=== PATIENT | female | born 1955 | race African-American/Black ===

== ENCOUNTER 2017-12-12 07:14 | Emergency (ER) | payer OTHER ==
[~2017-12-12] VITALS: Ht 167.6 cm; Wt 98.3 kg
[~2017-12-12 07:14] MED LIST: AMLO2.5T2 PO; ASPI-1071 PO; CARV3.1289 PO; PANT-47 PO; SIMV10TA6 PO
[2017-12-12 07:23] VITALS: BP 157/85
== END 2017-12-12 08:59 | disposition home or self-care (01) ==
LOC: ER 07:14
DX: M76.61 Achilles tendinitis, right leg (principal); I10 Essential (primary) hypertension; M19.90 Unspecified osteoarthritis, unspecified site; Z90.710 Acquired absence of both cervix and uterus; Z90.89 Acquired absence of other organs; Z88.5 Allergy status to narcotic agent; Z79.82 Long term (current) use of aspirin; Z79.899 Other long term (current) drug therapy; Z87.891 Personal history of nicotine dependence
CPT/HCPCS: 99282; A6449; L3260

== ENCOUNTER 2025-03-07 08:05 | Inpatient (IN) | payer BC, MEDICARE ==
[~2025-03-07] VITALS: Ht 167.6 cm; Wt 91.0 kg
[2025-03-07] VITALS (12 sets, daily range): BP systolic 125–162; BP diastolic 60–85; PULSE 71–115; RESP 16–21; TEMP 97.1–98.1; O2SAT 93–100
[~2025-03-07 08:05] MED LIST changes: -SIMV10TA6 PO; +SIMV10TA98 PO
--- NOTE | 2025-03-07 08:14 | ELECTROCARDIOGRAPH REPORT ---
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
--- NOTE | 2025-03-07 08:22 | Physician Documentation ---
History of Present Illness General Chief Complaint: Chest Pain Stated Complaint: CP Time Seen by MD: 08:22 OK to notify your PCP?: No Primary Medical Doctor: Pulse Exam Limitations: no limitations History of Present Illness Initial Comments The patient is a 69-year-old female presents to the emergency room with chest discomfort this has been going on for about the last two weeks. Patient states she gets short of breath and she has episodes of worsening chest pain over last two weeks. She states that she has had her thyroid removed a year ago and she is not on any thyroid medication. The patient states the pain is always there but sometimes it worsens and sometimes it improves. Patient denies any history of blood clots. Patient denies any fevers chills nausea or vomiting. Patient denies any history of cardiac problems other than some high blood pressure. Patient states her last cardiac workup was probably five years ago. Patient states she has diaphoresis during these episodes. Medication Reconciliation Allergies: Coded Allergies: codeine (Unverified Allergy, Unknown, 12/12/17) Scheduled Atorvastatin Calcium* (Lipitor*), 1 TAB PO DAILY, (Reported) Cyclobenzaprine* (Cyclobenzaprine*), 0.5 TAB PO Q12H, (Reported) Hydrochlorothiazide (Hydrochlorothiazide), 1 TAB PO DAILY, (Reported) Metoprolol Tartrate (Lopressor tablet), 1 TAB PO Q12H, (Reported) Trazodone HCl (Trazodone HCl), 1 TAB PO HS, (Reported) Discontinued Medications Amlodipine* (Norvasc*), 1 TABLET PO HS Discontinued Reason: patient no longer taking Aspirin* (Ecotrin*), 81 MG PO DAILY Discontinued Reason: patient no longer taking Carvedilol (Carvedilol), 3.125 MG PO BID Discontinued Reason: patient no longer taking Pantoprazole Sodium (PROTONIX tablet), 40 MG PO BKF Discontinued Reason: patient no longer taking Simvastatin (Simvastatin), 1 TABLET PO HS Discontinued Reason: patient no longer taking Past Medical History Past Medical History: Hypertension, Arthritis, Depression Past Surgical History: hysterectomy, tonsillectomy Smoking: Non-Smoker Alcohol Use: Rarely Drug Use: none Occupation: employed Review of Systems All Other Systems at this time: Reviewed and Negative Physical Exam Physical Exam Vital Signs: RN Vital Signs have been reviewed: Yes, Temperature: 97.0, Source: Temporal, Heart Rate: 117, Respiratory Rate: 16, BP: 193/112, Pulse Oximetry: 98, Weight: 91.000 Physical Exam VITALS: Reviewed and as above. GENERAL: Alert, no apparent distress. HEENT: Normocephalic, atraumatic, PERRL, EOMI, dry mucosa, no erythema RESPIRATORY: Lungs clear, normal breath sounds, no respiratory distress. CHEST: No accessory muscle use, no retractions CV: Tachycardia rate, rhythm, no edema, no murmur, No: JVD GI: Soft, non-tender, bowels sounds present, no rebound, guarding, or rigidity BACK: No CVA tenderness, or swelling MUSCULOSKELETAL: No deformities, no edema SKIN: Warm and dry, no rash NEURO: Oriented x4, No motor or sensory deficit PSYCH: Normal mood and affect, no agitation Progress Progress Note 0928: Hospitalist paged. 1010: Case discussed with internal medicine resident, who agrees to evaluate for admission. Results/Orders Reviewed/noted all lab results: Yes Results/Orders Orders - WILL SINGH MD Chest,Single View (03/07/25 08:16) Monitor (03/07/25 08:09) Saline Lock (03/07/25 08:09) Oxygen (03/07/25 08:09) Potassium Cl Sr Tablet (K-Dur Tablet) (03/07/25 09:00) Potassium Cl Sr Tablet (K-Dur Tablet) (03/07/25 09:00) Magnesium Cl Er Tablet (Slow-Mag Tablet) (03/07/25 09:00) Magnesium Sulf-Water 2g/50ml (Magnesium (03/07/25 09:00) Magnesium Sulf-Water 4g/100ml (Magnesium (03/07/25 09:00) Potassium Cl 40meq/1/2ns 520ml ([place] (03/07/25 09:00) K And/Or Mag Replacement (K And/Or Mag R (03/07/25 20:00) Page Hospitalist (03/07/25 09:28) Fill Out Med Reconciliation (03/07/25 09:28) Completed Orders - WILL SINGH MD Chest,Single View (03/07/25 08:16) Cbc/Diff (03/07/25 08:09) BMP (03/07/25 08:09) PBNP (03/07/25 08:09) Electrocardiogram (03/07/25 08:09) Hs Troponin I W Calculations (03/07/25 08:09) Hs Troponin I W Calculations (03/07/25 10:09) Hs Troponin I W Calculations (03/07/25 11:09) MG (03/07/25 08:17) TSH (03/07/25 08:17) D-Dimer (03/07/25 08:49) Lipid Panel (03/07/25 08:17) Vital Signs 03/07/25 03/07/25 03/07/25 03/07/25 08:12 08:27 08:27 09:35 Temp 97.0 97.0 Pulse 117 96 96 Resp 16 8 16 B/P (MAP) 193/112 160/89 (112) 147/80 (102) Pulse Ox 98 99 100 O2 Flow Rate 0 0 Laboratory Tests Test 03/07/25 08:17 White Blood Count 8.7 Red Blood Count 5.03 Hemoglobin 14.9 Hematocrit 43.8 Mean Corpuscular Volume 87.2 Mean Corpuscular Hemoglobin 29.6 Mean Corpuscular Hemoglobin Concent 33.9 Red Cell Distribution Width 14.2 Platelet Count 225 Mean Platelet Volume 9.8 Neutrophils (%) (Auto) 67.2 Lymphocytes (%) (Auto) 25.8 Monocytes (%) (Auto) 5.6 Eosinophils (%) (Auto) 0.6 Basophils (%) (Auto) 0.8 Neutrophils # (Auto) 5.8 Lymphocytes # (Auto) 2.2 Monocytes # (Auto) 0.5 Eosinophils # (Auto) 0.0 Basophils # (Auto) 0.1 CBC Comment D-Dimer 0.33 D-Dimer Comment Sodium Level 136 Potassium Level 2.7 *L Chloride Level 96 L Carbon Dioxide Level 30.1 Anion Gap 10 Blood Urea Nitrogen 20 H Creatinine 1.09 H Estimated GFR/1.73 m2 61 BUN/Creatinine Ratio 18.3 Glucose Level 136 H Calcium Level 9.3 Magnesium Level 2.2 Troponin I High Sensitivity 8 Pro-B-Type Natriuretic Peptide 57 Albumin 3.9 Triglycerides Level 99 Cholesterol Level 199 LDL Cholesterol 80 HDL Cholesterol 91 H Cholesterol/HDL Ratio 2.2 Thyroid Stimulating Hormone (TSH) 1.98 Chemistry Comments EKG/XRAY/CT/US/VASC/MRI EKG : Additional Comment 0812: EKG interpreted by myself to show sinus tachycardia at a rate of 108bpm. Prolonged QTc at 565ms. Nonspecific ST changes. Chest X-Ray : Additional Comments Patient: CRISPIN BERG Medical Record: [id number] [facility] : 1955, Age: 69 Sex: Female Location: ER Patient Status: [facility] ER Service Date/Time: 03/07/25815 Ordering Physician: WILL SINGH MD Exam: CHEST,SINGLE VIEW CHEST RADIOGRAPH Indication: CP Technique: Single frontal view of the chest was obtained Comparison: None FINDINGS: Lines and Tubes: None Lungs: No focal consolidation. Pleura: No effusion. No pneumothorax. Cardiomediastinal contours: Unremarkable Bones: No acute osseous abnormality. IMPRESSION: No acute cardiopulmonary disease. Electronically Signed by:MARSHALL WEBB MD Date & Time: 03/07/25844 Dictated by: MARSHALL WEBB MD Dictation date and time: 03/07/25815 Primary Care Provider: NO PRIMARY CARE PROVIDER cc: WILL SINGH MD ~ Medical Decision Making Findings The patient is a 69-year-old female with chest discomfort in some tachycardia, the patient has normal-appearing troponins, the patient's EKG was nonischemic appearing. The patient has not recently been studied by Cardiology. The patient will be admitted for further evaluation of her chest pain. Patient's chest x-ray was interpreted by me as showing a normal cardiac silhouette normal mediastinum and normal appearing bony structures as well as normal-appearing lung field I interpreted the chest x-ray as a normal chest x-ray the EKG was interpreted by me the traffic monitor specialist was interpreted as a sinus tachycardia in the pulse oximetry was interpreted as a normal pulse ox the patient will be admitted prior hospitalizations have been reviewed. Departure Disposition: ADMITTED INPATIENT Admitted to Inpatient Unit: yes, to hospitalist Impression: Primary Impression: Chest pain Qualified Codes: R07.9 - Chest pain, unspecified Additional Impressions: Hypokalemia Tachycardia Condition: Fair Education Educated: Patient Educated regarding: diagnosis, treatment, need for follow up Signature Scribe Signature: Scribed for Will Singh MD by Radha Hernandez . 03/07/25 09:16 Attestation: The note accurately reflects work and decisions made by me.Will Singh MD 03/08/25 18:57 WILL SINGH MD Mar 07, 2025 08:22 RADHA HARPER Mar 07, 2025 09:17
[2025-03-07 08:32] LABS: MEAN PLATELET VOLUME 9.8 FL (7.4-10.4); RED CELL DISTRIBUTION WIDTH 14.2 % (11.5-14.5)
--- NOTE | 2025-03-07 08:48 | RADIOLOGY REPORT ---
CHEST RADIOGRAPH Indication: CP Technique: Single frontal view of the chest was obtained Comparison: None FINDINGS: Lines and Tubes: None Lungs: No focal consolidation. Pleura: No effusion. No pneumothorax. Cardiomediastinal contours: Unremarkable Bones: No acute osseous abnormality. IMPRESSION: No acute cardiopulmonary disease.
[2025-03-07 08:56] LABS: CREATININE 1.09 MG/DL (0.40-0.90); PRO BRAIN NATRIURETIC PEPTIDE 57 PG/ML (0-125); TOTAL CARBON DIOXIDE 30.1 MMOL/L (24-32); eCRCL 47 ML/MIN; eGFR 61 ML/MIN
[2025-03-07] MEDS ORDERED: magnesium Cl slow-release 64mg tablet PO PRN ×2 (09:00→12:50)
[2025-03-07] MEDS ORDERED: potassium Cl 40MEQ/1/2NS 520ml 520 ML IV PRN ×2 (09:00→12:50)
[2025-03-07] MEDS ORDERED: magnesium sulf-water 2g/50mL 50 ML IV PRN ×2 (09:00→12:50)
[2025-03-07] MEDS ORDERED: magnesium sulf-water 4G/100mL 100 ML IV PRN ×2 (09:00→12:50)
[2025-03-07] MEDS: potassium Cl 20 mEq SR tablet PO PRN (09:33)
[2025-03-07] MEDS ORDERED: LOP12.5T PO (10:32)
[2025-03-07] MEDS ORDERED: HYDR25TA5 PO (10:32)
[2025-03-07] MEDS ORDERED: ATOR20TA PO (10:32)
[2025-03-07] MEDS ORDERED: TRAZ-251 PO (10:32)
[2025-03-07] MEDS ORDERED: CYCL-1 PO (10:32)
[2025-03-07] MEDS: levoTHYROXINE 100mcg tablet PO SCH (10:52)
[2025-03-07] MEDS ORDERED: aminophylline 250mg/10ml inj. IV PRN (11:30)
[2025-03-07] MEDS ORDERED: metoprolol tartrate 1mg/ml inj IV PRN (11:30)
[2025-03-07] MEDS: PERFLUTREN PROTEIN-A MICROSPHR (Optison) 0.22 MG/ML 3ML VIAL IV ONE (12:23)
[2025-03-07] MEDS ORDERED: cloNIDine 0.1 MG/24 HOUR patch (7 day patch) TD PRN (12:45)
[2025-03-07] MEDS ORDERED: ondansetron/PF 4mg/2ml inj IV PRN (12:50)
[2025-03-07] MEDS ORDERED: potassium Cl 20 mEq SR tablet PO PRN ×2 (12:50)
[2025-03-07] MEDS ORDERED: magnesium hydroxide 30ml (MOM) UD suspension PO PRN (12:50)
[2025-03-07] MEDS ORDERED: mag hydrox/Alum hydrox/simeth 30ml oral suspension PO PRN (12:50)
[2025-03-07 13:05] LABS: CHOL/HDL RATIO 2.2 (0.00-4.99); LDL CHOLESTEROL 80 MG/DL (50-100)
[2025-03-07 14:19] LABS: APTT 28 SECONDS (22-32); INR 1.1 INR
[2025-03-07 14:24] LABS: CREATININE 0.85 MG/DL (0.40-0.90); PHOSPHORUS 3.2 MG/DL (2.3-4.5); TOTAL CARBON DIOXIDE 30.2 MMOL/L (24-32); eCRCL 60 ML/MIN; eGFR 81 ML/MIN
[2025-03-07] MEDS: regadenoson 0.4mg/5ml syringe IV PRN (14:50)
--- NOTE | 2025-03-07 15:56 | RADIOLOGY REPORT ---
HISTORY: chest pain TECHNIQUE: At peak stress, 35.6 mCi of sestamibi was administered intravenously. Soon thereafter, gated SPECT imaging of the heart was performed with the patient in the supine position. At rest, 9.5 mCi of sestamibi was administered intravenously. Soon thereafter, gated SPECT imaging of the heart was performed with the patient in the supine position. FINDINGS: The left ventricular myocardium demonstrates uniform radiotracer distribution, without perfusion defect. The left ventricular cavity is normal in size. Calculated LVEF is 85 %. No segmental wall motion abnormality. IMPRESSION: NORMAL MYOCARDIAL PERFUSION EXAM. LVEF 85 %.
[2025-03-07] MEDS: aspirin 81mg, enteric-coated 1 TAB TABLET.DR PO SCH (17:03)
[2025-03-07] MEDS: metoprolol succinate 25mg (24-HOUR) SR. Tablet PO SCH (17:04)
--- NOTE | 2025-03-07 18:00 | HISTORY AND PHYSICAL-Residence ---
History & Physical Providers to CC Resident Creating Document: HAO SMITH RES ~ History of Present Illness Primary Medical Doctor: Pulse Reason for Admit\Complaint: Chest pain History of Present Illness 69-year-old female with history of hypertension, arthritis, depression, GERD came to the ER with complaints of intermittent episodes of central chest pain since past 2 weeks associated with shortness of breath and diaphoresis. She states that she has been having chronic chest tightness intermittently, and it used to reduce with over the counter Zantac (ranitidine) but it has not been working since past 2 weeks. She reports that her pain radiates to the back and duration of these episodes varies from 30 min to 2 hours. She states that these episodes are unrelated to exertion, and that they worsen when she takes spicy foods. She claims that the pain was 8/10 when she came in and now it reduced to 5/10. She gets short of breath during these episodes and and she states that it is not related to position. She denies swelling of bilateral lower legs. She has had chronic cough with minimal, clear sputum sometimes. She reports having few gagging episodes and denies choking. She states that she gets frequent headaches due to stress. She states that she feels lightheaded sometimes but denies any falls. She also states that she sometimes feels her heart racing. She reports that she has been taking less p.o. intake for the past few days. She is not on blood thinners. Her director cardiovascular is Dr. Marie Ferrera. She denies fever, chills, burning micturition, frequency, urgency, abdominal pain, nausea, vomiting, constipation, diarrhea, hematemesis, melena, hematochezia, changes in weight. Allergies: Coded Allergies: codeine (Unverified Allergy, Unknown, 12/12/17) Home Medications Home Medications Active Reported Trazodone HCl 50 Mg Tablet 1 Tab PO HS 30 Days Hydrochlorothiazide 25 Mg Tab 1 Tab PO DAILY 30 Days Lipitor* (Atorvastatin Calcium) 20 Mg Tablet 1 Tab PO DAILY 30 Days Lopressor tablet (Metoprolol Tartrate) 25 Mg Tablet 1 Tab PO Q12H 30 Days Hold for SBP below 100mm Hg Hold for Heart Rate below 60. Cyclobenzaprine* (Cyclobenzaprine HCl) 10 Mg Tablet 0.5 Tab PO Q12H 10 Days Past Medical History Past Medical History Hypertension Arthritis Depression GERD Past Surgical History Surgical History Comment Total thyroidectomy Hysterectomy Tonsillectomy Bilateral Cataract removal Family History Family History: FHx: diabetes mellitus Past Social History Social History Comment She quit smoking 18 years back. She used to smoke 1 pack/day for around 30 years. She quit drinking alcohol 2 years back. 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 Smoking: Non-Smoker Alcohol Use: Rarely Drug Use: None Occupation: employed ROS All Other Systems: Reviewed and Negative ROS Constitutional: Reports lightheadedness, No fever, chills, weight gain or loss Eyes: No pain, erythema, discharge, blurring of vision ENT: No sore throat, epistaxis, tinnitus Cardiovascular: Reports chest pain, diaphoresis, No palpitations, syncope, lower extremity edema, paroxysmal nocturnal dyspnea Respiratory: Reports Shortness of breath and cough, No hemoptysis. Gastrointestinal:No Abdominal pain, vomiting,nausea,constipation,diarrhea. Normal appetite. No hematemesis or melena. Musculoskeletal: No Swelling, pain in bilateral lower legs. Integumentary: No change in skin, hair, nails. No swelling, bruising, abrasions Neurologic: Reports headaches and generalized weakness, No neck pain, numbness or tingling of the extremities, Psychiatric: No delusions, depression, loss of interest in normal activity or change in sleep pattern, hallucinations, suicidal ideations Endocrine: No fatigue, no weakness. polydipsia, polyuria, change in appetite, heat or cold intolerance, sweating, dry skin Hematological: No bleeding, petechiae, bruising Allergies: No asthma or urticaria Exam Vitals: Vital Signs Date Time Temp Pulse Resp B/P (MAP) Pulse Ox O2 Delivery O2 Flow Rate FiO2 03/07/25 14:57 83 16 132/62 98 Room Air 03/07/25 11:33 0 03/07/25 08:27 97.0 General: Awake , alert, and oriented x4, resting comfortably in the bed, in no acute distress HEENT: Atraumatic, normocephalic, EOMI, anicteric sclera ; pink conjunctiva Neck: Trachea midline. Supple, full range of motion, no JVD Cardiac: Regular rhythm, regular rate with no murmurs all over the precordium. Respiratory: No tenderness, Equal breath sounds bilaterally, no tachypnea, no wheezing ,rub or rales, Chest wall is symmetric and without deformity. Gastrointestinal: Abdomen symmetric, non-distended, soft, non-tender, normal bowel sounds x4 quadrant, normoactive, no hepatosplenomegaly Musculoskeletal: No pedal edema, no cyanosis Neurological: Speech is clear, alert, and oriented x 4. No motor or sensory deficit, deep tendon reflexes normal, cerebellar intact. Cranial nerves II-XII intact. Skin: Warm and dry Diagnostic Data Last Recorded Lab Results: 03/07/25 0817 03/07/25 1359 Diagnostic Data: Laboratory Tests Test 03/07/25 08:17 03/07/25 13:59 D-Dimer 0.33 MG/L FEU (0-0.50) D-Dimer Comment Prothrombin Time 11.0 SECONDS (9.0-12.0) INR International Normalized Ratio 1.1 INR Activated Partial Thromboplast Time 28 SECONDS (22-32) Coagulation Comments Additional Plan Chest pain, possibly due to GERD vs Unstable angina Troponin is normal EKG shows no ischemic changes or arrhythmias Chest x-ray shows no cardiopulmonary abnormality BNP is normal Echo shows LVEF of 65-70% with trace to mild mitral regurgitation, trace tricuspid and pulmonic regurgitation. Lipid panel normal Plan: Started aspirin, atorvastatin, metoprolol succinate 25 mg Q 24 H Ordered clonidine 0.1 mg q.4h p.r.n. if systolic blood pressure > 150 Started IV Protonix 40 mg Q 24H Follow up stress test Follow up TSH Continue telemetry monitoring We will consider gastroenterology consultation if necessary Hypokalemia Potassium is 2.7 Started potassium replacement protocol Monitor BMP Hypertension Continue home medication hydrochlorothiazide 25 mg p.o. daily Depression Continue home medication trazodone 50 mg HS Code status: Full code DVT prophylaxis: Heparin subQ GI prophylaxis: Protonix Diet/nutrition: Regular diet Prognosis: Guarded Disposition: Continue medical management, PT eval and DC plan Resident attestation: The patient note has been reviewed and supervised by senior residents PGY-2/ PGY-3. Patient was seen, examined and discussed with attending physician. Hao Smith MD Internal Medicine resident, PGY-1 Date of Service: Mar 07, 2025 Billing Provider: SERGEY CHATTERJEE MD,HAO, RES Mar 07, 2025 18:00
--- NOTE | 2025-03-07 18:16 | CARDIOLOGY REPORT ---
APPROVED REPORT EXAM: Comprehensive 2D, Doppler, and color-flow Echocardiogram. Patient Location: ED2 Blood Pressure: 147/69 mmHg Heart Rate: 80 bpm Rhythm: NSR Indications SOB Equipment Service Engineer is Kizzy Ferrera MD. Previous echo 01/08/15 [facility] 65-70% ; m MR tr TR 2D Dimensions LA Diam 3.6 cm IVSd 1.0 (0.7-1.1cm) LVDd 3.9 cm PWd 0.9 (0.7-1.1cm) IVSs 1.4 (0.8-1.2cm) LVDs 2.4 (2.5-4.0cm) Aortic Root(2D) 2.9 cm PWs 1.2 (0.8-1.2cm) LVOT Diameter 2.02 (1.8-2.4cm) LVEF(%) 70.7 (>50%) Ao Asc Diam. 3.07 cm IVC 13.33 mm FS (%) 39.5 % SV 46.3 ml CO 3.6 L/min M-Mode Dimensions MV EPSS 0.7 (<0.5cm) Aortic Valve AoV Peak Jose Rafael. 145.0 cm/s AoV VTI 27.7 cm AO Peak GR. 8.4 mmHg AO Mean GR. 4 mmHg LVOT VTI 20.59 cm LVOT Peak Jose Rafael. 102.7 cm/s TREVOR(VTI)/BSA 2.37 cm2/m2 TREVOR (VTI) 2.37 cm2 Mitral Valve MV E Velocity 50.7 cm/s MV Peak Gr. 2 mmHg MV DECEL TIME 200 ms MV A Velocity 70.8 cm/s MV PHT 56 ms E/A Ratio 0.7 MVA (PHT) 3.93 cm2 MV VMax 69.2 cm/s TDI Medial E' P. V 10.47 cm/s E/Medial E' 4.8 Tricuspid Valve TR P. Velocity 237 cm/s RAP ESTIMATE 10 mmHg TR Peak Gr. 22 mmHg RVSP 32 mmHg Pulmonary Vein S1 Velocity 85.2 cm/s D2 Velocity 42.6 cm/s PVa Velocity 32.6 cm/s PVa Duration 68 msec LEFT VENTRICLE Normal LV size and wall thickness. Overall systolic function is normal. LVEF is 65-70%. RIGHT VENTRICLE RV appears normal in size and contractility. RVSP is estimated at 32 mmHG. ATRIA The left atrium size is normal. AORTIC VALVE Trileaflet AV appears sclerotic without stenosis. No insufficiency. MITRAL VALVE MV is thickened with mild annular calcification and no stenosis. Trace to mild mitral regurgitation. TRICUSPID VALVE The tricuspid valve is normal in structure. Trace tricuspid regurgitation. PULMONIC VALVE The pulmonary valve is normal in structure. Trace pulmonic regurgitation. GREAT VESSELS The aortic root is normal in size. The ascending aorta is normal in size. The IVC is normal in size and collapses >50% with inspiration. PERICARDIUM There is no pericardial effusion. Other Information Study Quality: Adequate Conclusion Normal LV size and wall thickness. Overall systolic function is normal. LVEF is 65-70%. RV appears normal in size and contractility. RVSP is estimated at 32 mmHG. The left atrium size is normal. Trileaflet AV appears sclerotic without stenosis. No insufficiency. MV is thickened with mild annular calcification and no stenosis. Trace to mild mitral regurgitation. The tricuspid valve is normal in structure. Trace tricuspid regurgitation. The pulmonary valve is normal in structure. Trace pulmonic regurgitation. There is no pericardial effusion.
[2025-03-07] MEDS: K and/or MAG REPLACEMENT MC SCH ×2 (20:00)
[2025-03-07] MEDS: docusate sod 100mg capsule PO SCH (20:12)
[2025-03-07] MEDS: heparin, porcine 5000 units/ml vial SQ SCH (20:14)
[2025-03-08] VITALS (8 sets, daily range): BP systolic 103–116; BP diastolic 52–68; PULSE 55–71; RESP 10–20; TEMP 97.2–97.8; O2SAT 98–100
[2025-03-08 06:22] LABS: MEAN PLATELET VOLUME 9.8 FL (7.4-10.4); RED CELL DISTRIBUTION WIDTH 14.3 % (11.5-14.5)
[2025-03-08 06:36] LABS: CREATININE 0.76 MG/DL (0.40-0.90); TOTAL CARBON DIOXIDE 31.6 MMOL/L (24-32); eCRCL 67 ML/MIN; eGFR > 90 ML/MIN
[2025-03-08] MEDS: potassium Cl 20 mEq SR tablet PO PRN (07:42)
--- NOTE | 2025-03-08 10:00 | PROGRESS NOTE- Residence ---
Progress Note - Resident Providers to CC Resident Creating Document: HAO SMITH RES ~ Antibiotic Timeout Antibiotic Ordered?: No Subjective Patient seen and examined bedside. She is not in apparent distress. She states that her symptoms have improved, She states that she had chest pain today of severity 3/10. No new overnight complaints reported. Objective Vital Signs Date Time Temp Pulse Resp B/P (MAP) Pulse Ox O2 Delivery O2 Flow Rate FiO2 03/08/25 02:00 97.4 59 10 113/65 (81) 100 Room Air 03/07/25 11:33 0 Result Diagram: 03/08/25 0552 03/08/25 0552 Awake , alert, and oriented x4, resting comfortably in the bed, in no acute distress HEENT: Atraumatic, normocephalic, EOMI, anicteric sclera ; pink conjunctiva Neck: Trachea midline. Supple, full range of motion, no JVD Cardiac: Regular rhythm, regular rate with no murmurs all over the precordium. Respiratory: No tenderness, Equal breath sounds bilaterally, no tachypnea, no wheezing ,rub or rales, Chest wall is symmetric and without deformity. Gastrointestinal: Abdomen symmetric, non-distended, soft, non-tender, normal bowel sounds x4 quadrant, normoactive, no hepatosplenomegaly Musculoskeletal: No pedal edema, no cyanosis Neurological: Speech is clear, alert, and oriented x 4. No motor or sensory deficit, deep tendon reflexes normal, cerebellar intact. Cranial nerves II-XII intact. Skin: Warm and dry Coagulation Studies Laboratory Tests Test 03/07/25 08:17 03/07/25 13:59 D-Dimer 0.33 MG/L FEU (0-0.50) D-Dimer Comment Prothrombin Time 11.0 SECONDS (9.0-12.0) INR International Normalized Ratio 1.1 INR Activated Partial Thromboplast Time 28 SECONDS (22-32) Coagulation Comments Assessment Assessment 69-year-old female presented to the ER with intermittent chest pain, shortness of breath, diaphoresis, Admitted for evaluation of unstable angina and GERD. Plan Plan Chest pain, possibly due to GERD vs Unstable angina Troponin is normal EKG shows no ischemic changes or arrhythmias Chest x-ray shows no cardiopulmonary abnormality BNP is normal Echo shows LVEF of 65-70% with trace to mild mitral regurgitation, trace tricuspid and pulmonic regurgitation. Lipid panel normal Plan: Started aspirin, atorvastatin, metoprolol succinate 25 mg Q 24 H Ordered clonidine 0.1 mg q.4h p.r.n. if systolic blood pressure > 150 Started IV Protonix 40 mg Q 24H Follow up stress test Follow up TSH Continue telemetry monitoring We will consider gastroenterology consultation if necessary 03/08/25: Hb is normal TSH normal Stress test is negative Discontinued aspirin, atorvastatin Started heart healthy diet Switched IV Protonix to p.o. Protonix 40 mg Q 24 H Hypokalemia Potassium is 2.7 Started potassium replacement protocol Monitor BMP 03/08/25: Potassium is 3.4 Monitor BMP Reduced dosage of hydrochlorothiazide to 12.5 mg p.o. Hypertension Continue home medication hydrochlorothiazide 25 mg p.o. daily 03/08/25: Blood pressure normal Reduced dosage of hydrochlorothiazide to 12.5 mg p.o, in view of hypokalemia Started amlodipine 5 mg p.o. Depression Continue home medication trazodone 50 mg HS Code status: Full code DVT prophylaxis: Heparin subQ GI prophylaxis: Protonix 40 mg p.o. Diet/nutrition: Heart healthy diet Prognosis: Guarded Disposition: Continue medical management, PT eval and DC plan Resident MD attestation: The patient note has been reviewed and supervised by senior residents PGY-2/ PGY-3. Patient was seen, examined and discussed with attending physician. Patient is possible discharge in a.m. if clinically stable Hao Smith MD Internal Medicine resident, PGY-1 Date of Service: Mar 08, 2025 Billing Provider: RALF TATE MD, PREETHI, RES Mar 08, 2025 10:00 RALF TATE MD Mar 08, 2025 19:12
--- NOTE | 2025-03-08 19:13 | Visit Coding Note ---
Date of Service: Mar 08, 2025 Billing Provider: RAFL TATE MD Common Visit Codes: [id number] INP/OBS CARE(HIGH) RALF TATE MD Mar 08, 2025 19:13
[2025-03-09 02:00] VITALS: BP 102/59; PULSE 64; RESP 10; TEMP 97.3; O2SAT 95
[2025-03-09 06:23] LABS: MEAN PLATELET VOLUME 10.2 FL (7.4-10.4); RED CELL DISTRIBUTION WIDTH 14.2 % (11.5-14.5)
[2025-03-09 06:36] LABS: CREATININE 0.88 MG/DL (0.40-0.90); TOTAL CARBON DIOXIDE 31.3 MMOL/L (24-32); eCRCL 58 ML/MIN; eGFR 78 ML/MIN
[2025-03-09 07:30] VITALS: RESP 16; O2SAT 100
[2025-03-09] MEDS: pantoprazole 40mg Tablet.DR PO SCH (07:56)
[2025-03-09 09:09] VITALS: BP 97/54
[2025-03-09] MEDS: normal saline 1000ML IV soln IVB ONE (10:18)
[2025-03-09 12:30] VITALS: BP 118/72; PULSE 74; RESP 16
[2025-03-09] MEDS ORDERED: HYDROchlorothiazide tablet PO (12:35)
[2025-03-09] MEDS ORDERED: PANT40TA54 PO (12:35)
[2025-03-09] MEDS ORDERED: LEVO100T9 PO (12:35)
--- NOTE | 2025-03-09 16:31 | DISCHARGE SUMMARY-Residence ---
Discharge Summary Providers to Resident Creating Document: CUDOUGLAS KIRAN, RES ~ Discharge Summary Admission Diagnosis: Chest pain Hospital Course DATE OF ADMISSION: 03/07/2025 DATE OF DISCHARGE: 03/09/2025 Discharge Diagnosis\Comment: Chest pain, most likely costochondritis vs GERD ACS ruled out Hypokalemia Hypertension Depression Operations\Procedures: None Consultants: None Complications: None Condition on DC: Stable New Medications: [HYDROchlorothiazide tablet] () 12.5 MG CAPSULE 12.5 MG PO DAILY for 30 Days, #30 Levothyroxine Sodium (Levothyroxine Sodium) 100 Mcg Tablet 100 MCG PO DAILY@07 for 30 Days, #30 TAB Pantoprazole Sodium (Pantoprazole Sodium) 40 Mg Tablet.dr 40 MG PO BKF for 10 Days, #10 TAB.SR Continued Medications: Atorvastatin Calcium* (Lipitor*) 20 Mg Tablet 1 TAB PO DAILY for 30 Days, #30 TAB Cyclobenzaprine* (Cyclobenzaprine*) 10 Mg Tablet 0.5 TAB PO Q12H for muscle spasms for 10 Days, #30 TAB 0 Refills Metoprolol Tartrate (Lopressor tablet) 25 Mg Tablet 1 TAB PO Q12H for 30 Days, #60 TAB Hold for SBP below 100mm Hg Hold for Heart Rate below 60. Trazodone HCl (Trazodone HCl) 50 Mg Tablet 1 TAB PO HS for 30 Days, #30 TAB 0 Refills Discontinued Medications: Hydrochlorothiazide (Hydrochlorothiazide) 25 Mg Tab 1 TAB PO DAILY for 30 Days, #30 TAB 0 Refills Discharge Summary: HPI as per admitting physician: 69-year-old female with history of hypertension, arthritis, depression, GERD came to the ER with complaints of intermittent episodes of central chest pain since past 2 weeks associated with shortness of breath and diaphoresis. She states that she has been having chronic chest tightness intermittently, and it used to reduce with over the counter Zantac (ranitidine) but it has not been working since past 2 weeks. She reports that her pain radiates to the back and duration of these episodes varies from 30 min to 2 hours. She states that these episodes are unrelated to exertion, and that they worsen when she takes spicy foods. She claims that the pain was 8/10 when she came in and now it reduced to 5/10. She gets short of breath during these episodes and and she states that it is not related to position. She denies swe lling of bilateral lower legs. She has had chronic cough with minimal, clear sputum sometimes. She reports having few gagging episodes and denies choking. She states that she gets frequent headaches due to stress. She states that she feels lightheaded sometimes but denies any falls. She also states that she sometimes feels her heart racing. She reports that she has been taking less p.o. intake for the past few days. She is not on blood thinners. Her last sawyer is Dr. Marie Ferrera. She denies fever, chills, burning micturition, frequency, urgency, abdominal pain, nausea, vomiting, constipation, diarrhea, hematemesis, melena, hematochezia, changes in weight. Hospital course: Initial concern was for unstable angina versus gastroesophag eal reflux disease (GERD). Troponins remained within normal limits, and EKG showed no acute ischemic changes or arrhythmias. Chest X-ray demonstrated no cardiopulmonary abnormalities, and BNP was normal. Transthoracic echocardiogram revealed preserved left ventricular systolic function (LVEF 6570%) with only trace to mild mitral, tricuspid, and pulmonic regurgitation. Lipid panel was normal. She was initially started on aspirin, atorvastatin, and metoprolol succinate for suspected angina, and IV Protonix was initiated for possible GERD. Telemetry monitoring was continued, and stress testing was ordered. TSH and hemoglobin were both within normal limits. Stress test was negative for ischemia, making ACS less likely, and her chest pain was attributed to GERD. Consequently, aspirin and atorvastatin were discontinued, IV Protonix was transitioned to oral Protonix 40 mg daily, and a heart-healthy diet was initiated. During hospitalization, she was also noted to have hypokalemia with potassium of 2.7 mmol/L, likely related to hydrochlorothiazide use. Potassium replacement protocol was initiated, with potassium improving to 3.4 mmol/L. Her hydrochlorothiazide dose was reduced from 25 mg to 12.5 mg daily, and amlodipine 5 mg daily was started for blood pressure control. Renal function and electrolytes were closely monitored. Her blood pressure stabilized on the adjusted regimen. She continued her home trazodone for depression without complications. At the time of discharge, the patient was clinically stable with resolution of chest pain, potassium improving, blood pressure well controlled, and no new cardiopulmonary complaints. Imaging: Echocardiogram: Normal LV size and wall thickness. Overall systolic function is normal. LVEF is 65-70%. RV appears normal in size and contractility. RVSP is estimated at 32 mmHG. The left atrium size is normal. Trileaflet AV appears sclerotic without stenosis. No insufficiency. MV is thickened with mild annular calcification and no stenosis. Trace to mild mitral regurgitation. The tricuspid valve is normal in structure. Trace tricuspid regurgitation. The pulmonary valve is normal in structure. Trace pulmonic regurgitation. There is no pericardial effusion. NM Lexiscan: Normal myocardial perfusion exam LVEF 85 %. Chest x-ray: No acute cardiopulmonary disease. Physical examination today: Awake , alert, and oriented x4, resting comfortably in the bed, in no acute distress HEENT: Atraumatic, normocephalic, EOMI, anicteric sclera ; pink conjunctiva Neck: Trachea midline. Supple, full range of motion, no JVD Cardiac: Regular rhythm, regular rate with no murmurs all over the precordium. Respiratory: No tenderness, Equal breath sounds bilaterally, no tachypnea, no wheezing ,rub or rales, Chest wall is symmetric and without deformity. Gastrointestinal: Abdomen symmetric, non-distended, soft, non-tender, normal bowel sounds x4 quadrant, normoactive, no hepatosplenomegaly Musculoskeletal: No pedal edema, no cyanosis Neurological: Speech is clear, alert, and oriented x 4. No motor or sensory deficit, deep tendon reflexes normal, cerebellar intact. Cranial nerves II-XII intact. Skin: Warm and dry Laboratory Tests Test 03/07/25 19:12 03/08/25 05:52 03/09/25 05:31 Potassium Level 3.6 MMOL/L 3.4 MMOL/L 3.5 MMOL/L Thyroid Stimulating Hormone (TSH) 1.59 ulU/ml White Blood Count 5.3 X10'3 5.8 X10'3 Red Blood Count 4.45 X10'6 4.42 X10'6 Hemoglobin 13.2 g/dl 13.1 g/dl Hematocrit 38.7 % 38.6 % Mean Corpuscular Volume 86.9 FL 87.3 FL Mean Corpuscular Hemoglobin 29.7 PG 29.6 PG Mean Corpuscular Hemoglobin Concent 34.2 g/dL 33.9 g/dL Red Cell Distribution Width 14.3 % 14.2 % Platelet Count 185 X10'3 189 X10'3 Mean Platelet Volume 9.8 FL 10.2 FL Neutrophils (%) (Auto) 52.0 % 47.0 % Lymphocytes (%) (Auto) 35.3 % 39.3 % Monocytes (%) (Auto) 10.0 % 9.9 % Eosinophils (%) (Auto) 1.7 % 2.5 % Basophils (%) (Auto) 1.0 % 1.3 % Neutrophils # (Auto) 2.8 X10'3 2.7 X10'3 Lymphocytes # (Auto) 1.9 X10'3 2.3 X10'3 Monocytes # (Auto) 0.5 X10'3 0.6 X10'3 Eosinophils # (Auto) 0.1 X10'3 0.1 X10'3 Basophils # (Auto) 0.1 X10'3 0.1 X10'3 CBC Comment Sodium Level 139 MMOL/L 138 MMOL/L Chloride Level 100 MMOL/L 100 MMOL/L Carbon Dioxide Level 31.6 MMOL/L 31.3 MMOL/L Anion Gap 7 7 Blood Urea Nitrogen 15 MG/DL 20 MG/DL Creatinine 0.76 MG/DL 0.88 MG/DL Estimated GFR/1.73 m2 > 90 ML/MIN 78 ML/MIN BUN/Creatinine Ratio 19.7 22.7 Glucose Level 97 MG/DL 115 MG/DL Calcium Level 8.9 MG/DL 9.0 MG/DL Magnesium Level 2.4 MG/DL 2.3 MG/DL Total Bilirubin 1.1 MG/DL 0.5 MG/DL Aspartate Amino Transf (AST/SGOT) 23 U/L 29 U/L Alanine Aminotransferase (ALT/SGPT) 18 U/L 22 U/L Alkaline Phosphatase 108 IU/L 104 IU/L Total Protein 7.8 G/DL 7.2 G/DL Albumin 3.1 G/DL 3.0 G/DL Globulin 4.7 G/DL 4.2 G/DL Albumin/Globulin Ratio 0.7 0.7 Chemistry Comments Advise on discharge: - continue medications as prescribed - follow up with primary care provider regarding blood pressure medication - blood pressure was soft during your hospital stay and also her potassium was low, hence decreased the dose of hydrochlorothiazide to 12.5 mg - monitor for signs symptoms like chest pain with the excessive exertion, severe sweating, palpitations etc.; call 911/go to the nearby ED The patient felt ready to be discharged and was medically cleared to be discharged on 03/09/2025 The patient was seen and evaluated on day of discharge. Time spent on discharge 35 minutes *Problems/Diagnosis: (1) Chest pain Status: Acute Total Time Spent on D/C: > 30 Minutes Date of Service: Mar 09, 2025 Billing Provider: KEILA BOWSER DO Common Visit Codes: 09695-HFZ/OBS DISCH DAY >30min Problem Qualifiers (1) Chest pain: Chest pain type: unspecified Qualified Codes: R07.9 - Chest pain, unspecified DOUGLAS SIMMONS, RES Mar 09, 2025 16:23 KEILA BOWSER DO Mar 09, 2025 17:18
== END 2025-03-09 13:30 | disposition home or self-care (01) | DRG 206 ==
LOC: ER 08:08 → ED HOLD 10:19 → PCU 3S 15:39
PROVIDERS: ADMIT Internal Medicine; ATTEND Internal Medicine
PROC: 4A02XM4 Measurement of Cardiac Total Activity, External Approach (ICD-10-PCS; principal; 2025-03-07)
PROC: 3E073KZ Introduction of Other Diagnostic Substance into Coronary Artery, Percutaneous Approach (ICD-10-PCS; 2025-03-07)
DX: M94.0 Chondrocostal junction syndrome [Tietze] (principal); E87.6 Hypokalemia; I10 Essential (primary) hypertension; K21.9 Gastro-esophageal reflux disease without esophagitis; F32.A Depression, unspecified; Z90.710 Acquired absence of both cervix and uterus
CPT/HCPCS: 36415; 71045; 80048; 80053; 80061; 83036; 83735; 83880; 84100; 84132; 84439; 84443; 84484; 85025; 85379; 85610; 85730; 87081; 93005; 93017; 93306; 96372; 96374; 96375; 99285; G0378; J1644; J2470; J2785; J7030; J7040

== ENCOUNTER 2025-04-04 11:33 | Emergency (ER) | payer BC, MEDICARE ==
[~2025-04-04] VITALS: Ht 167.6 cm; Wt 93.6 kg
[~2025-04-04 11:33] MED LIST changes: -AMLO2.5T2 PO; -ASPI-1071 PO; +ATOR20TA PO; -CARV3.1289 PO; +CYCL-1 PO; +HYDROchlorothiazide tablet PO; +LEVO100T9 PO; +LOP12.5T PO; -PANT-47 PO; +PANT40TA54 PO; -SIMV10TA98 PO; +TRAZ-251 PO
[2025-04-04 11:51] VITALS: TEMP 97.7
--- NOTE | 2025-04-04 12:01 | Physician Documentation ---
History of Present Illness ~ Stated Complaint: HIGH BLOOD PRESSURE MED REQUEST Time Seen by MD: 12:26 Primary Medical Doctor: So KLIEN 69-year-old female presents with increased shortness of breath with activity levels and an elevated blood pressure. States that she also has a burning chest pain but denies any chest pressure. Says he was at work today and had abnormal vitals including an elevated heart rate and hypertensive. She was sent here from her work for evaluation states that she was prescribed medication for GERD the last time she was seen here in the ED however it has not improved her her burning chest Medication Reconciliation Allergies: Coded Allergies: codeine (Unverified Allergy, Unknown, 04/04/25) Scheduled Amlodipine Besylate (Amlodipine Besylate), 1 TAB PO DAILY, (Reported) Atorvastatin Calcium* (Lipitor*), 1 TAB PO DAILY, (Reported) Fluoxetine Hcl (Prozac), 1 CAP PO DAILY, (Reported) Hydrochlorothiazide (Hydrochlorothiazide), 0.5 TAB PO QAM, (Reported) Levothyroxine Sodium (Levothyroxine Sodium), 100 MCG PO DAILY@07 Metoprolol Tartrate (Lopressor tablet), 1 TAB PO Q12H, (Reported) Scheduled PRN albuterol inhaler (Pro-Air Inhaler), 2 PUFFS INH Q4HPRN PRN for wheezing Discontinued Medications Cyclobenzaprine* (Cyclobenzaprine*), 0.5 TAB PO Q12H, (Reported) Discontinued Reason: patient no longer taking Pantoprazole Sodium (Pantoprazole Sodium), 40 MG PO BKF Discontinued Reason: patient no longer taking Trazodone HCl (Trazodone HCl), 1 TAB PO HS, (Reported) Discontinued Reason: patient no longer taking [HYDROchlorothiazide tablet], 12.5 MG PO DAILY Discontinued Reason: patient no longer taking Past Medical History Past Medical History: Hypertension, Arthritis, Depression Past Surgical History: hysterectomy, tonsillectomy Patient History: FHx: diabetes mellitus Alcohol Use: Rarely Drug Use: none Occupation: employed Physical Exam Physical Exam General: Alert, no apparent distress. Respiratory: Lungs clear, diminished Chest: No accessory muscle use. Cardiovascular: Regular rate and rhythm, no murmurs. Gastrointestinal: Soft, nontender, nondistended. Bowels sounds present. Neurologic: Oriented x4. Psychiatric: Normal mood and affect. Skin: Normal color, warm and dry. No edema, no ecchymosis. Progress Results/Orders Results/Orders Vital Signs 04/04/25 04/04/25 04/04/25 04/04/25 11:51 12:53 12:54 13:17 Temp 97.7 Pulse 108 96 92 Resp 18 16 16 16 B/P (MAP) 160/87 148/85 (106) 141/79 Pulse Ox 99 98 98 O2 Flow Rate 0 0 04/04/25 04/04/25 13:19 13:19 Pulse 94 103 Resp 20 Pulse Ox 96 96 O2 Delivery Room Air* Room Air* O2 Flow Rate 0 0 FiO2 N/A N/A Laboratory Tests Test 04/04/25 12:13 04/04/25 12:22 Troponin I High Sensitivity 8 White Blood Count 8.8 Red Blood Count 4.55 Hemoglobin 13.6 Hematocrit 40.5 Mean Corpuscular Volume 89.0 Mean Corpuscular Hemoglobin 29.9 Mean Corpuscular Hemoglobin Concent 33.6 Red Cell Distribution Width 14.8 H Platelet Count 213 Mean Platelet Volume 9.6 Neutrophils (%) (Auto) 74.8 Lymphocytes (%) (Auto) 18.9 L Monocytes (%) (Auto) 4.9 Eosinophils (%) (Auto) 0.6 Basophils (%) (Auto) 0.8 Neutrophils # (Auto) 6.6 Lymphocytes # (Auto) 1.7 Monocytes # (Auto) 0.4 Eosinophils # (Auto) 0.0 Basophils # (Auto) 0.1 CBC Comment Sodium Level 141 Potassium Level 4.0 Chloride Level 104 Carbon Dioxide Level 31.0 Anion Gap 6 L Blood Urea Nitrogen 11 Creatinine 0.88 Estimated GFR/1.73 m2 78 BUN/Creatinine Ratio 12.5 Glucose Level 106 H Calcium Level 9.2 Pro-B-Type Natriuretic Peptide 66 Albumin 3.5 Chemistry Comments Medical Decision Making Findings Upon further evaluation, patient reported stopping smoking in 2006 she had smoked decades prior to that. I ordered an SVN treatment which seemed to improve her hair flu and ability to take deeper breaths. The majority values are unremarkable as were her EKG and x-ray. Reports improved symptoms. Advise her that she needs to follow up with the primary care to obtain an official COPD diagnosis via PFTs. However I am going to send her home with a inhaler to help with any shortness a breath to the suspected COPD diagnosis Heart Score: 3 Differential Dx:Considerations: Include: anxiety, asthma, bronchitis, cardiogenic shock, CHF, COPD, dysrhythmia, hypertension, accelerated, hypertension, essential, hypertension, malignant, hyperventilation, hyponatremia, myocardial infarction, panic attack, pneumonia, pneumonitis, pn eumothorax, PSVT, pulmonary embolism, respiratory distress, respiratory failure, sinusitis, upper resp. infection, other Departure Disposition: HOME / SELF CARE / HOMELESS Impression: Primary Impression: Chest pain Additional Impression: SOB (shortness of breath) Discharge Instructions: COPD and Physical Activity, Hypertension, Adult Additional Instructions: Make sure to go see your primary care doctor and get a pulmonary function test to determine whether or not you meet the criteria for COPD Safe to go back to work today Referrals: NO PRIMARY CARE PROVIDER (PCP) Prescriptions albuterol inhaler (Pro-Air Inhaler) 8.5 Gm Inhaler 2 PUFFS INH Q4HPRN PRN for wheezing for 30 Days, #18 GM Prov: MAGUE SALES NP 04/04/25 MAGUE SALES NP Apr 04, 2025 12:01 HERMELINDO CARLSON MD Apr 05, 2025 06:18
--- NOTE | 2025-04-04 12:06 | ELECTROCARDIOGRAPH REPORT ---
[facility] Test Date: 2025-04-04 Test Time: 12:04:49 Pat Name: CRISPIN ELDRIDGEPELL Department: EMERGENCY ROOM [id number] Room: Gender: F [employer] Manager: GWENDOLYN : 1955 Requested By: MAGUE SALES Order Number: [id number] Reading MD: Measurements Intervals [place] Rate: 109 P: 73 IA: 119 QRS: -6 QRSD: 115 T: 27 QT: 367 QTc: 495 Interpretive Statements Sinus tachycardia Incomplete left bundle branch block Low voltage, precordial leads Please click the below link to view image of tracing.
[2025-04-04] MEDS ORDERED: HYDR25TA5 PO (12:28)
[2025-04-04] MEDS ORDERED: AMLO5TAB16 PO (12:28)
[2025-04-04] MEDS ORDERED: FLUO-1 PO (12:30)
[2025-04-04 12:34] LABS: MEAN PLATELET VOLUME 9.6 FL (7.4-10.4); RED CELL DISTRIBUTION WIDTH 14.8 % (11.5-14.5)
--- NOTE | 2025-04-04 12:47 | RADIOLOGY REPORT ---
CHEST RADIOGRAPH Indication: CP Technique: Single frontal view of the chest was obtained COMPARISON: DI CHEST,SINGLE VIEW on DOS: 03/07/25 FINDINGS: Lines and Tubes: None Lungs: Clear Pleura: No effusion. No pneumothorax. Cardiomediastinal contours: Unremarkable Bones: Unremarkable IMPRESSION: No acute disease.
[2025-04-04 12:57] LABS: CREATININE 0.88 MG/DL (0.40-0.90); PRO BRAIN NATRIURETIC PEPTIDE 66 PG/ML (0-125); TOTAL CARBON DIOXIDE 31.0 MMOL/L (24-32); eCRCL 58 ML/MIN; eGFR 78 ML/MIN
[2025-04-04] MEDS: ipratropium/albuterol 3ml nebule NEB ONE (13:11)
[2025-04-04 13:17] VITALS: BP 141/79
[2025-04-04] MEDS ORDERED: ALBU8HFA INH (13:18)
[2025-04-04 13:19] VITALS: PULSE 103; PULSE 94; RESP 20; O2SAT 96
== END 2025-04-04 13:27 | disposition home or self-care (01) ==
LOC: ER 11:33
DX: R07.9 Chest pain, unspecified (principal); R06.02 Shortness of breath; I10 Essential (primary) hypertension; M19.90 Unspecified osteoarthritis, unspecified site; F32.A Depression, unspecified; Z88.5 Allergy status to narcotic agent; Z90.710 Acquired absence of both cervix and uterus
CPT/HCPCS: 36415; 71045; 80048; 83880; 84484; 85025; 93005; 94640; 94760; 99285